=== PATIENT | female | born 1940 | race Caucasian/White ===

== ENCOUNTER 2019-01-22 12:34 | Inpatient (IN) | payer BC, OTHER ==
--- NOTE | 2019-01-22 13:09 | PDOC ---
History of Present Illness - General Stated Complaint: EDEMA Time Seen by Provider: 01/22/19 13:06 - History of Present Illness Initial Comments: 01/22/19 14:27 78y/o F hx of HTN, possible Parkinsons, HLD presents to the ED with complaint of right knee pain and leg swelling. She was in her wheelchair for 4 days unable to get up because of pain in her right knee. She had a fall from her wheelchair 2 weeks ago and fell on affected knee. She denies any head trauma at that time and reports being able to ambulate after the fall. Pain became unbearable 4 days ago confining her to her wheelchair. Pain is exacerbated by weight bearing on the knee and relieved with rest.She was able to reach her phone today and call her aide who alerted EMS services. Daughter and aide at bedside report she has a tendency to downplay her symptoms and injuries and are not certain that she is being entirely forthcoming about the circumstances surrounding her fall. she denies any fevers, chills, nausea, vomiting, diaphoresis, numbness or tingling. 01/22/19 14:38 Past History - Past Medical History Allergies/Adverse Reactions: Allergies Allergy/AdvReac Type Severity Reaction Status Date / Time Penicillins Allergy Verified 01/22/19 14:14 Home Medications: Ambulatory Orders Ferrous Sulfate 325 mg PO DAILY 01/22/19 Furosemide [Lasix] 20 mg PO DAILY 01/22/19 Gabapentin 300 mg PO TID 01/22/19 Levothyroxine [Synthroid -] 12.5 mcg PO DAILY@0700 01/22/19 Lovastatin 10 mg PO DAILY 01/22/19 Aspirin [Jaime Chewable Aspirin] 81 mg PO DAILY 01/23/19 Acetaminophen [Tylenol] 650 mg PO Q6H PRN #60 tablet 01/26/19 Lidocaine 5% Patch [Lidoderm -] 1 patch TP DAILY patch 01/26/19 Lidocaine Patch Removal [Lidoderm Patch Removal] 1 each MC DAILY@2200 each 09/09 Lisinopril [Prinivil] 5 mg PO DAILY #30 tablet 01/26/19 Review of Systems - Review of Systems Constitutional: No: Chills, Fever HEENTM: No: Eye Pain, Blurred Vision Respiratory: No: Cough, Shortness of Breath Cardiac (ROS): No: Chest Pain ABD/GI: No: Nausea, Vomiting : No: Burning, Dysuria Musculoskeletal: Yes: Back Pain Integumentary: No: Bruising, Change in Color Neurological: No: Headache, Dizziness *Physical Exam - Physical Exam Comments: 01/22/19 14:33 PE: GENERAL: Awake, alert, and fully oriented, in no acute distress HEAD: No signs of trauma, normocephalic, atraumatic EYES: PERRLA, EOMI, sclera anicteric, conjunctiva clear ENT: Auricles normal inspection, nares patent, oropharynx clear without exudates. Moist mucosa NECK: Normal ROM, supple, no lymphadenopathy, JVD, or masses. kyphosis of upper back LUNGS: No distress, speaks full sentences, decreased breath sounds, no rales or crackles HEART: tachycardic, normal S1 and S2, no murmurs, rubs or gallops, 1+ pedal pulses ABDOMEN: Soft, nontender, normoactive bowel sounds. No guarding, no rebound. No masses. Red erythematous rash in folds of lower abdomen and groin. EXTREMITIES : bilateral 3+ pitting edema on lower extremities. right knee tender to palpation. no bruising/erythema observed. NEUROLOGICAL: Cranial nerves II through XII grossly intact. Normal speech, no focal sensorimotor deficits SKIN: Warm, Dry, normal turgor, no rashes (with exception of abdomen, see abdominal exam) noted ED Treatment Course - LABORATORY CBC & Chemistry Diagram: 01/23/19 06:33 01/24/19 08:35 Medical Decision Making - Medical Decision Making 78y/o F hx of HTN, possible Parkinsons, HLD presents to the ED with complaint of right knee pain and leg swelling. Workup cbc,cmp, ekg, ua, urine culture, head ct w/o contrast, bnp, cardiac profile, right knee x-ray Pt has resisted previous recommendations for cardiology consultation will request a cardiology consult. 01/22/19 14:29 Pharmacy contacted for full list of medication. informed they will call back in 20minutes. 01/22/19 14:31 01/22/19 14:50 EKG: sinus tachycardia, junctional ST depression 01/22/19 17:[address] The risks and benefits were clearlry explaained to her. She refuses to do so because of her anxiety and because she does bot want to stay flat. She was offered ativan and pain medication to help with her pain and tolerating CT but she still refuses. Discharge - Discharge Information Problems reviewed: Yes Clinical Impression/Diagnosis: Knee pain Qualifiers: Chronicity: unspecified Laterality: right Qualified Code(s): M25.561 - Pain in right knee Condition: Improved Disposition: LONG TERM FACILITY - Follow up/Referral - Patient Discharge Instructions - Post Discharge Activity
[2019-01-22 14:36] LABS: BASO % 0.4 % (0-2.0); EOS % 0.2 % (0-4.5); HEMATOCRIT 39.9 % (32.4-45.2); HEMOGLOBIN 12.7 GM/dL (10.7-15.3); LYMPH % 8.8 % (8-40); MCH 27.2 pg (25.7-33.7); MCHC 31.8 g/dl (32.0-36.0); MEAN CELL VOLUME 85.8 fl (80-96); MEAN PLT VOLUME 8.1 fl (7.5-11.1); MONO % 5.7 % (3.8-10.2); NEUT % 84.9 % (42.8-82.8); PLATELET COUNT 206 K/MM3 (134-434); RBC 4.66 M/mm3 (3.60-5.2); RDW 16.3 % (11.6-15.6); WHITE BLOOD COUNT 11.1 K/mm3 (4.0-10.0)
--- NOTE | 2019-01-22 14:46 | PDOC ---
Attending Attestation - Resident Resident Name: Tana Tucker - ED Attending Attestation I have performed the following: I have examined & evaluated the patient, The case was reviewed & discussed with the resident, I agree w/resident's findings & plan, Exceptions are as noted - HPI HPI: 01/22/19 13:54 78y F hx of htn, hl, and other unclear medical history presents with complaint of R leg pain and inability to ambulate. Pt states she has been having increased leg swelling the past few weeeks, she also fell because her walker's wheel fell off. She fell a few days ago on her side and denies any head injury/ loc, numbness/tingling/weakness, chest pain, shortness of breath, abd pain, orthopnea, new back pain. Pt does endorse R knee pain that makes it difficult to ambulate in addition to her leg swelling. - Physicial Exam PE: 01/22/19 14:46 GENERAL: The patient is awake, alert, and fully oriented, Nontoxic - in no acute distress, obese HEAD: Normocephalic, atraumatic. EYES: extraocular movements intact, sclera anicteric, conjunctiva clear. ENT: Normal voice, dry mucous membranes. NECK: Normal range of motion, supple LUNGS: Breath sounds equal, clear to auscultation bilaterally. No wheezes, no rhonchi, no rales. HEART: Rtachycardic, regular ABDOMEN: Soft, nontender, EXTREMITIES: Normal range of motion, +4 pitting edema b/l NEUROLOGICAL: No facial assymetry, Normal speech, PSYCH: Normal mood, normal affect. SKIN: Warm, Dry, normal turgor, erythemaous rash on abd panus - Medical Decision Making 01/22/19 14:47 suspect lypmphedema vs chf, also noted for dehydration and xander 01/22/19 15:22 labs reviewed noted for mild BUN elevation will give fluids for hydration will give tramadol for pain Heart Score/ECG Review - ECG Impressions Comment:: 01/22/19 15:22 Twelve-lead EKG was performed and reviewed by me. There is normal sinus rhythm with a rate of 118 normal axis sinus tachycardia
[2019-01-22 15:06] LABS: BILIRUBIN,TOTAL 0.6 mg/dL (0.2-1); BLOOD UREA NITROGEN 39.2 mg/dL (7-18); CALCIUM 9.6 mg/dL (8.5-10.1); CREATININE 1.2 mg/dL (0.55-1.3); POTASSIUM 4.6 mmol/L (3.5-5.1); TOT PROT 7.5 g/dl (6.4-8.2)
[2019-01-22] MEDS ORDERED: SODIUM CHLORIDE 1,000 ML IV ONE (15:20)
[2019-01-22] MEDS ORDERED: traMADol HCL 50 MG TABLET PO ONE (15:21)
--- NOTE | 2019-01-22 15:34 | EKG ---
Test Reason : Blood Pressure : / mmHG Vent. Rate : 118 BPM Atrial Rate : 118 BPM P-R Int : 140 ms QRS Dur : 078 ms QT Int : 310 ms P-R-T Axes : 078 028 021 degrees QTc Int : 434 ms POOR DATA QUALITY, INTERPRETATION MAY BE ADVERSELY AFFECTED SINUS TACHYCARDIA JUNCTIONAL ST DEPRESSION, PROBABLY NORMAL BORDERLINE ECG NO PREVIOUS ECGS AVAILABLE Confirmed by Cristhian Nash MD ([id number]) on 01/22/2019 3:34:19 PM Referred By: Confirmed By:Cristhian Nash MD
[2019-01-22] MEDS ORDERED: diazePAM 2 MG TABLET PO ONE (15:54)
[2019-01-22] MEDS ORDERED: LORazepam 2 MG/ML SDV VIAL ONE (15:58)
[2019-01-22] MEDS ORDERED: traMADol HCL 50 MG TABLET ONE (17:59)
[2019-01-22 18:16] LABS: EPI CELLS 2.8 /HPF (0-5/HPF); HYALINE CASTS 4 /lpf (0-8); URINE APPEARANCE CLEAR; URINE BACTERIA 3587.9 /hpf (NEGATIVE); URINE BILIRUBIN NEGATIVE (NEGATIVE); URINE COLOR YELLOW; URINE GLUCOSE (UA) NEGATIVE (NEGATIVE); URINE KETONE TRACE (NEGATIVE); URINE LEUK ESTERASE NEGATIVE (NEGATIVE); URINE NITRITE POSITIVE (NEGATIVE); URINE PROTEIN NEGATIVE (NEGATIVE); URINE RBC 2 /hpf (0-4); URINE UROBILINOGEN 0.2 mg/dL (0.2-1.0); URINE WBC 1 /hpf (0-5)
--- NOTE | 2019-01-22 19:35 | PN ---
Teaching Attending Note Name of Resident: Christina Santacruz ATTENDING PHYSICIAN STATEMENT I saw and evaluated the patient. I reviewed the resident's note and discussed the case with the resident. I agree with the resident's findings and plan as documented. SUBJECTIVE: Patient is an 78 year old woman with PMH of HTN, ?Parkinson's disease, Hypothyroidism, Penicillin allergy and HLD presents to the ER with complaint of right knee pain and leg swelling. She was in her wheelchair for 4 days unable to get up because of pain in her right knee. She had a fall from her wheelchair 2 weeks ago and fell on affected knee. She denies any head trauma at that time and reports being able to ambulate after the fall. Pain became unbearable 4 days ago confining her to her wheelchair. Pain is exacerbated by weight bearing on the knee and relieved with rest. Daughter and aide at bedside report she has a tendency to downplay her symptoms and injuries and are not certain that she is being entirely forthcoming about the circumstances surrounding her fall. she denies any fevers, chills, nausea, vomiting, diaphoresis, numbness or tingling. Has FH of dementia and ?heart problem. OBJECTIVE: Vital Signs Period Temp Pulse Resp BP Sys/Murrell Pulse Ox Last 24 Hr 99.3 F 112 18 171/98 98 HEENT: No Jaundice, eye redness or discharge, PERRLA, EOMI. Normocephalic, atraumatic. External ears are normal and hearing is grossly intact. No nasal discharge. Neck: Supple, nontender. No palpable adenopathy or thyromegaly. No JVD Chest: Good effort. Clear to auscultation and percussion. Heart: Regular. No S3, rub or murmur Abdomen: Not distended, soft, nontender and no HSM. ?Fungal rash in lower abdominal folds. No rebound or guarding. Normal bowel sounds. Ext: Peripheral pulses intact. Tender and swollen right knee with limited ROM. Leg edema (R>L). Skin: Warm and dry. No petechiae, rash or ecchymosis. Neuro: Alert. Oriented x3. CN 2-12 grossly intact. Sensation grossly intact in all four extremities and DTR are symmetric. Gait cannot be tested for safety reasons. Psych: Appropriate mood and affect. Good insight. Home Medications Medication Instructions Recorded Ferrous Sulfate 325 mg PO DAILY 01/22/19 Furosemide [Lasix] 20 mg PO DAILY 01/22/19 Gabapentin 300 mg PO TID 01/22/19 Levothyroxine [Synthroid -] 12.5 mcg PO DAILY 01/22/19 Lovastatin 10 mg PO DAILY 01/22/19 Meloxicam 15 mg PO DAILY 01/22/19 Abnormal Lab Results 01/22/19 01/22/19 01/22/19 14:30 14:30 18:07 WBC 11.1 H MCHC 31.8 L RDW 16.3 H Absolute Neuts (auto) 9.4 H Neutrophils % 84.9 H BUN 39.2 H Alkaline Phosphatase 194 H Urine Ketones Trace H Urine Blood 1+ H Urine Nitrite Positive H ASSESSMENT AND PLAN: 1. Fall/Right knee pain - No abnormality noted on knee xray. Will get CT of right knee and head. Consult PT and Neurology to evaluate for movement disorder. Get doppler of legs, ECHO and treat UTI with Macrobid. EKG shows sinus tachycardia with no significant ST-T wave changes and initial troponin is 0.02. CXR shows increased interstitial markings, elevated right hemidiaphragm and bibasilar atelectesis. Will continue comprehensive care for all of patient s comorbid conditions. 2. Obesity Counseled on the risks associated with obesity. Will provide patient all the necessary assistance, counseling and positive reinforcement to facilitate weight loss. Consult tool and die manager. 3. Hypertension - Restart suitable outpatient antihypertensive drugs when clinically appropriate. Revise regimen to ensure [id number] excellent BP control and relocation counselor patient on the injurious effects of uncontrolled hypertension. Nonpharmacologic measures to control hypertension like weight loss , salt restriction and exercise discussed. Importance of adherence to treatment regimen and attainment of normotension emphasized. 4. DVT prophylaxis - Lovenox 40 mg SQ q 24 hours. 5. Advance directives - Full code
--- NOTE | 2019-01-22 21:41 | HP ---
CHIEF COMPLAINT: RLE pain PCP: Dr. Bianchi HISTORY OF PRESENT ILLNESS: 78 y.o. F PMH HTN, HLD, chronic lymphedema presenting with RLE pain. Patient says her wheelchair wheel broke off on October 25 causing her to fall out of her wheelchair; she did not hit her head or experience any traumas at this time. 1.5 weeks ago the wheel fell off her chair again and she subsequently fell. She was able to get back into her chair and denies any traumas during this fall; denied dizziness/ palpitations/ pain at time of falls-- never hit her head/ no LOC/ no incontinence. 4 days ago she started having sharp right knee pain, 7/10 , nonradiating with increased RLE edema. Since the second fall 1.5 weeks ago the patient has been wheelchair bound (was able to ambulate previously with a walker). Patient says she has not eaten for 24 hours due to pain and inability to prepare herself food. Pt denies CP/ SOB/ abdominal pain/ headaches/ fevers/ chills/ N/V/ appetite changes/ weight changes/ myalgias/ parasthesias/ polyuria / hematuria/ dysuria/ bowel movement changes. ER course was notable for: (1) 1L NS bolus (2)Tramadol 50mg PO (3) Recent Travel: denies PAST MEDICAL HISTORY: as per HPI PAST SURGICAL HISTORY: "breast lumps" removed as a child Social History: lives alone with no school psychometrist. Has a few friends that help out but not significantly. Daughter recently moved out of town Smoking: denies Alcohol: denies Drugs: denies Allergies Penicillins Allergy (Verified 01/22/19 14:14) HOME MEDICATIONS: Home Medications Medication Instructions Recorded Ferrous Sulfate 325 mg PO DAILY 01/22/19 Furosemide [Lasix] 20 mg PO DAILY 01/22/19 Gabapentin 300 mg PO TID 01/22/19 Levothyroxine [Synthroid -] 12.5 mcg PO DAILY 01/22/19 Lovastatin 10 mg PO DAILY 01/22/19 Meloxicam 15 mg PO DAILY 01/22/19 REVIEW OF SYSTEMS CONSTITUTIONAL: Absent: fever, chills, diaphoresis, generalized weakness, malaise, loss of appetite, weight change HEENT: Absent: rhinorrhea, nasal congestion, throat pain, throat swelling, difficulty swallowing, mouth swelling, ear pain, eye pain, visual changes CARDIOVASCULAR: Absent: chest pain, syncope, palpitations, irregular heart rate, lightheadedness , peripheral edema RESPIRATORY: Absent: cough, shortness of breath, dyspnea with exertion, orthopnea, wheezing, stridor, hemoptysis GASTROINTESTINAL: Absent: abdominal pain, abdominal distension, nausea, vomiting, diarrhea, constipation, melena, hematochezia GENITOURINARY: Absent: dysuria, frequency, urgency, hesitancy, hematuria, flank pain, genital pain MUSCULOSKELETAL: Absent: myalgia, arthralgia, joint swelling, back pain, neck pain SKIN: Absent: rash, itching, pallor HEMATOLOGIC/IMMUNOLOGIC: Absent: easy bleeding, easy bruising, lymphadenopathy, frequent infections ENDOCRINE: Absent: unexplained weight gain, unexplained weight loss, heat intolerance, cold intolerance NEUROLOGIC: Absent: headache, focal weakness or paresthesias, dizziness, unsteady gait, seizure, mental status changes, bladder or bowel incontinence PSYCHIATRIC: Absent: anxiety, depression, suicidal or homicidal ideation, hallucinations. PHYSICAL EXAMINATION Vital Signs - 24 hr 01/22/19 01/22/19 12:35 20:09 Temperature 99.3 F 98.1 F Pulse Rate 112 H Pulse Rate [ 96 H Apical] Respiratory 18 20 Rate Blood Pressure 171/98 H Blood Pressure 162/92 [Right Arm] O2 Sat by Pulse 98 98 Oximetry (%) GENERAL: Anxious. Awake, alert, and fully oriented. HEENT: NCAT. MMM. LUNGS: Breath sounds equal, clear to auscultation bilaterally. No wheezes, and no crackles. No accessory muscle use. HEART: Regular rate and rhythm, normal S1 and S2 without murmur, rub or gallop. ABDOMEN: Soft, nontender, not distended, normoactive bowel sounds, no guarding. Intertrigous rash present lower abdominal fold UPPER EXTREMITIES: 2+ pulses present. No edema LOWER EXTREMITIES: 2+ pitting edema present. Chronic lymphedema. 2+ pulses present b/l LE. NEUROLOGICAL: B/l LE diminished motor strength: LLE 2/5, RLE 0/5. Sensory intact b/l LE & UE. PSYCHIATRIC: Cooperative. Good eye contact. Appropriate mood and affect. Laboratory Results - last 24 hr 01/22/19 01/22/19 01/22/19 14:30 14:30 14:30 WBC 11.1 H RBC 4.66 Hgb 12.7 Hct 39.9 MCV 85.8 MCH 27.2 MCHC 31.8 L RDW 16.3 H Plt Count 206 MPV 8.1 Absolute Neuts (auto) 9.4 H Neutrophils % 84.9 H Lymphocytes % 8.8 Monocytes % 5.7 Eosinophils % 0.2 Basophils % 0.4 Nucleated RBC % 0 Sodium 143 Potassium 4.6 Chloride 107 Carbon Dioxide 26 Anion Gap 11 BUN 39.2 H Creatinine 1.2 Est GFR (CKD-EPI)AfAm 49.43 Est GFR (CKD-EPI)NonAf 42.65 Random Glucose 102 Calcium 9.6 Total Bilirubin 0.6 AST 32 ALT 42 Alkaline Phosphatase 194 H Creatine Kinase 40 Troponin I < 0.02 B-Natriuretic Peptide Total Protein 7.5 Albumin 4.0 Urine Color Urine Appearance Urine pH Ur Specific [place] Urine Protein Urine Glucose (UA) Urine Ketones Urine Blood Urine Nitrite Urine Bilirubin Urine Urobilinogen Ur Leukocyte Esterase Urine WBC (Auto) Urine RBC (Auto) Urine Casts (Auto) U Epithel Cells (Auto) Urine Bacteria (Auto) 01/22/19 01/22/19 14:30 18:07 WBC RBC Hgb Hct MCV MCH MCHC RDW Plt Count MPV Absolute Neuts (auto) Neutrophils % Lymphocytes % Monocytes % Eosinophils % Basophils % Nucleated RBC % Sodium Potassium Chloride Carbon Dioxide Anion Gap BUN Creatinine Est GFR (CKD-EPI)AfAm Est GFR (CKD-EPI)NonAf Random Glucose Calcium Total Bilirubin AST ALT Alkaline Phosphatase Creatine Kinase Troponin I B-Natriuretic Peptide 132.8 Total Protein Albumin Urine Color Yellow Urine Appearance Clear Urine pH 5.0 Ur Specific [place] 1.023 Urine Protein Negative Urine Glucose (UA) Negative Urine Ketones Trace H Urine Blood 1+ H Urine Nitrite Positive H Urine Bilirubin Negative Urine Urobilinogen 0.2 Ur Leukocyte Esterase Negative Urine WBC (Auto) 1 Urine RBC (Auto) 2 Urine Casts (Auto) 4 U Epithel Cells (Auto) 2.8 Urine Bacteria (Auto) 3587.9 ASSESSMENT/PLAN: 78 y.o. F PMH HTN, HLD, chronic lymphedema presentin for RLE pain #RLE pain 2/2 fall-- r/o ACS -S/p 50mg tramadol PO -Knee XR done no fractures -Ordered R knee CT and LE duplex u/s; pt refusing both studies -PT requested -Neuro (Dr. Tomas) consulted. -EKG: sinus tachy;; trop neg x1 -F.u echo -Tele monitoring #HTN -pt takes no home HTN meds -Started lisinopril 5mg daily #UTI -UA: +nitrites, 1+ blood, trace ketones -Macrobid 50mg PO q6h x 5d #HLD -C/w lovastatin (home med) #FEN -s/p 1LNS in ED; no standing fluids -trend lytes -Na controlled diet #DVT PPX -LVX 40mg SQ daily Visit type - Emergency Visit Emergency Visit: Yes ED Registration Date: 01/22/19 Care time: The patient presented to the Emergency Department on the above date and was hospitalized for further evaluation of their emergent condition. - New Patient This patient is new to me today: Yes Date on this admission: 01/23/19 - Critical Care Critical Care patient: No ATTENDING PHYSICIAN STATEMENT I saw and evaluated the patient. I reviewed the resident's note and discussed the case with the resident. I agree with the resident's findings and plan as documented. SUBJECTIVE: OBJECTIVE: ASSESSMENT AND PLAN:
[2019-01-23] MEDS ORDERED: ACETAMINOPHEN 325 MG TABLET (FP) PO ONE (00:58)
[2019-01-23] MEDS: GABAPENTIN 300 MG CAPSULE (FP) PO SCH ×3 (06:15→22:49)
[2019-01-23 06:53] LABS: HEMATOCRIT 35.5 % (32.4-45.2); HEMOGLOBIN 11.6 GM/dL (10.7-15.3); MCH 27.8 pg (25.7-33.7); MCHC 32.7 g/dl (32.0-36.0); MEAN CELL VOLUME 84.8 fl (80-96); MEAN PLT VOLUME 8.1 fl (7.5-11.1); PLATELET COUNT 186 K/MM3 (134-434); RBC 4.18 M/mm3 (3.60-5.2); RDW 16.3 % (11.6-15.6); WHITE BLOOD COUNT 7.2 K/mm3 (4.0-10.0)
[2019-01-23 07:18] LABS: ALBUMIN 3.3 g/dl (3.4-5.0); BILIRUBIN,TOTAL 0.7 mg/dL (0.2-1); BLOOD UREA NITROGEN 28.3 mg/dL (7-18); CALCIUM 8.9 mg/dL (8.5-10.1); CREATININE 0.9 mg/dL (0.55-1.3); MAGNESIUM 2.3 mg/dL (1.8-2.4); PHOSPHOROUS 3.4 mg/dL (2.5-4.9); POTASSIUM 4.3 mmol/L (3.5-5.1); TOT PROT 6.4 g/dl (6.4-8.2)
[2019-01-23] MEDS ORDERED: NITROFURANTOIN MACROCRYSTAL 50 MG CAPSULE (FP) PO SCH (08:00)
[2019-01-23] MEDS: LEVOTHYROXINE NA 25 MCG TABLET (FP) PO SCH (08:54)
[2019-01-23] MEDS ORDERED: PT OWN MED DRAWER 7, Y5N ONE (09:41)
[2019-01-23] MEDS: ENOXAPARIN NA (PORCINE) 40 MG/0.4 ML DISP.SYRIN SQ SCH (09:42)
[2019-01-23] MEDS: LISINOPRIL 5 MG TABLET (FP) PO SCH (09:42)
[2019-01-23] MEDS: ASPIRIN 81 MG CHEWABLE TABLETS PO SCH (09:42)
[2019-01-23] MEDS: FERROUS SO4 325 MG TABLET (FP) PO SCH (09:42)
[2019-01-23] MEDS ORDERED: FLU VACCINE QUAD 60 MCG/0.5 ML (MDV 19-20) IM ONE (10:00)
[2019-01-23] MEDS ORDERED: LEVOTHYROXINE NA 25 MCG TABLET (FP) PO SCH (10:00)
--- NOTE | 2019-01-23 11:29 | EKG ---
Test Reason : Blood Pressure : / mmHG Vent. Rate : 118 BPM Atrial Rate : 118 BPM P-R Int : 146 ms QRS Dur : 086 ms QT Int : 312 ms P-R-T Axes : 062 021 026 degrees QTc Int : 437 ms SINUS TACHYCARDIA OTHERWISE NORMAL ECG WHEN COMPARED WITH ECG OF 22-JAN-2019 13:11, NO SIGNIFICANT CHANGE WAS FOUND Confirmed by HIPOLITO FRIED MD ([id number]) on 01/23/2019 11:29:31 AM Referred By: Confirmed By:HIPOLITO FRIED MD
--- NOTE | 2019-01-23 14:08 | ECHO ---
Name: OWEN MCRAE Exam:Adult Echocardiogram Study Date: 01/23/2019 12:40 PM Age: 78 yrs Reason For Study: s/p fall Height: 66 in Weight: 200 lb BSA: 2.0 m2 MMode/2D Measurements & Calculations IVSd: 1.1 cm Ao root diam: 2.6 cm LVIDd: 3.1 cm LA dimension: 2.6 cm LVIDs: 2.0 cm LVPWd: 0.86 cm EDV(Teich): 36.9 ml LVOT diam: 2.0 cm ESV(Teich): 12.1 ml LAV (MOD-bp): 62.7 ml Doppler Measurements & Calculations MV E max raj: 86.8 cm/sec Ao V2 max: 210.4 cm/sec MV A max raj: 117.9 cm/sec Ao max P.7 mmHg MV E/A: 0.74 Ao V2 mean: 148.5 cm/sec MV dec time: 0.08 sec Ao mean P.2 mmHg Ao V2 VTI: 43.5 cm JUAN A(I,D): 1.6 cm2 AI P1/2t: 461.4 msec JUAN A(V,D): 1.7 cm2 AI max raj: 156.1 cm/sec LV V1 max P.2 mmHg AI max P.7 mmHg LV V1 mean P.7 mmHg AI dec slope: 99.1 cm/sec2 LV V1 max: 114.0 cm/sec LV V1 mean: 74.5 cm/sec LV V1 VTI: 22.0 cm SV(LVOT): 68.6 ml TR max raj: 317.6 cm/sec TR max P.4 mmHg PA V2 max: 107.2 cm/sec Med Peak E' Raj: 5.4 cm/sec PA max P.6 mmHg Med E/e': 16.0 Lat Peak E' Raj: 10.2 cm/sec Lat E/e': 8.5 Procedure The study was technically difficult with many images being suboptimal in quality. Left Ventricle The left ventricular size, thickness and function are normal. The left ventricular ejection fraction is normal. E/A reversal consistent with but not diagnostic of poor LV compliance. Regional wall motion abnormalities cannot be excluded due to limited visualization. Right Ventricle The right ventricle is normal in size and function. Atria Normal left and right atrial size and function. Mitral Valve There is mild mitral valve thickening. There is no mitral valve stenosis. There is trace mitral regur gitation. Tricuspid Valve The tricuspid valve is not well visualized, but is grossly normal. There is no tricuspid stenosis. Th ere is mild tricuspid regurgitation. Right ventricular systolic pressure is elevated at 40-50mmHg. Aortic Valve The aortic valve is not well visualized. No hemodynamically significant valvular aortic stenosis. Tra ce aortic regurgitation. Great Vessels The aortic root is normal size. Pericardium/Pleura There is no pericardial effusion. Interpretation Summary The left ventricular size, thickness and function are normal The left ventricular ejection fraction is normal. Regional wall motion abnormalities cannot be excluded due to limited visualization. There is trace mitral regurgitation. There is mild tricuspid regurgitation. Right ventricular systolic pressure is elevated at 40-50mmHg. E/A reversal consistent with but not diagnostic of poor LV compliance Trace aortic regurgitation. MD Tien Galaviz 01/23/2019 02:07 PM
--- NOTE | 2019-01-23 14:55 | CON.NEURO ---
Consult Consult Specialty:: Josh Referred by:: PCP Reason for Consultation:: Falls - History of Present Illness History of Present Illness: 78 years old right-handed female patient with multiple medical problem including Coronary artery disease Osteoarthritis Lymphedema Hypertension Presents to the hospital for neurological consultation and evaluation with a chief complaint difficulty walking patient was admitted to the medical floor for further treatment and management. According to the chart patient broke her wheelchair and sustained trauma with a fall October 25. Patient never been to a neurologist in the past. - History Source History Provided By: Patient, Significant Other, Medical Record - Past Medical History ...: No - Alcohol/Substance Use Hx Alcohol Use: No - Smoking History Smoking history: Never smoked Have you smoked in the past 12 months: No Home Medications - Allergies Allergies/Adverse Reactions: Allergies Allergy/AdvReac Type Severity Reaction Status Date / Time Penicillins Allergy Verified 01/22/19 14:14 - Home Medications Home Medications: Ambulatory Orders Ferrous Sulfate 325 mg PO DAILY 01/22/19 Furosemide [Lasix] 20 mg PO DAILY 01/22/19 Gabapentin 300 mg PO TID 01/22/19 Levothyroxine [Synthroid -] 12.5 mcg PO DAILY@0700 01/22/19 Lovastatin 10 mg PO DAILY 01/22/19 Meloxicam 15 mg PO DAILY 01/22/19 Aspirin [Jaime Chewable] 81 mg PO DAILY 01/23/19 Family Medical History Family History: Unable to Obtain Review of Systems - Review of Systems Constitutional: reports: No Symptoms Eyes: reports: No Symptoms Physical Exam-Neuro Vital Signs: Vital Signs Temperature 98.5 F 01/23/19 10:00 Pulse Rate 110 H 01/23/19 10:00 Respiratory Rate 20 01/23/19 10:00 Blood Pressure 145/74 01/23/19 10:00 O2 Sat by Pulse Oximetry (%) 95 01/23/19 09:00 Constitutional: Yes: Well Nourished Neck: Yes: WNL Cardiovascular: Yes: WNL Labs: CBC, BMP 01/23/19 06:33 01/23/19 06:33 - Neuro Exam Level Of Consciousness: Yes: Oriented to Person DTR's: 1+ Left Bicep, 1+ Right Bicep, 1+ Left Tricep, 1+ Right Tricep Response to light touch: Normal Response to pain prick: Normal Response to temperature: Abnormal Response to vibration: Abnormal Motor Strength: 3/5: Left Arm, Right Arm, Left Leg, Right Leg Gait: Deferred Problem List - Problems (1) Frequent falls Assessment/Plan: NO EVIDENCE OF PARKINSON 1. Fall precautions. 2. CAT scan of the head with no contrast. 3. CAT scan of the lumbosacral spine with no contrast. Physical therapy. Increase by mouth fluid intake. Lidocaine patches on the lower back. DVT prophylaxis. Code(s): R29.6 - REPEATED FALLS
[2019-01-23] MEDS: FUROSEMIDE 20 MG TABLET (FP) PO SCH (15:07)
[2019-01-23] MEDS ORDERED: LIDOCAINE 5% TOPICAL PATCH TP SCH (15:45)
--- NOTE | 2019-01-23 15:52 | PN ---
Addendum entered and electronically signed by Cande Harrell, RESIDENT 16:37: Plan: Chronic lymphedema SCDs to assist while inpatient. pt uses pump at home Original Note: Physical Exam: SUBJECTIVE: Patient seen and examined. Pt continues to endorse pain in the right leg as well as behind the right knee. OBJECTIVE: Vital Signs Period Temp Pulse Resp BP Sys/Murrell Pulse Ox Last 24 Hr 98.1 F-99.4 F 96-139 20-20 141-162/74-107 95-98 GENERAL: The patient is awake, alert, and fully oriented, in no acute distress. HEAD: Normal with no signs of trauma. EYES: PERRL, extraocular movements intact, sclera anicteric, conjunctiva clear. No ptosis. ENT: oropharynx clear without exudates, moist mucous membranes. LUNGS: Breath sounds equal, clear to auscultation bilaterally, no wheezes, no crackles, no accessory muscle use. HEART: Regular rate and rhythm, S1, S2 without murmur, rub or gallop. ABDOMEN: Soft, nontender, nondistended, normoactive bowel sounds, no guarding, no rebound, no hepatosplenomegaly, no masses. EXTREMITIES: 2+ pulses, warm, well-perfused, pitting edema. SKIN: Warm, dry, normal turgor, chronic lymphedema skin changes Laboratory Results - last 24 hr 01/22/19 01/23/19 01/23/19 18:07 04:30 06:33 WBC 7.2 RBC 4.18 Hgb 11.6 Hct 35.5 MCV 84.8 MCH 27.8 MCHC 32.7 RDW 16.3 H Plt Count 186 MPV 8.1 Sodium Potassium Chloride Carbon Dioxide Anion Gap BUN Creatinine Est GFR (CKD-EPI)AfAm Est GFR (CKD-EPI)NonAf Random Glucose Calcium Phosphorus Magnesium Total Bilirubin AST ALT Alkaline Phosphatase Troponin I < 0.02 Total Protein Albumin Urine Color Yellow Urine Appearance Clear Urine pH 5.0 Ur Specific Cumming 1.023 Urine Protein Negative Urine Glucose (UA) Negative Urine Ketones Trace H Urine Blood 1+ H Urine Nitrite Positive H Urine Bilirubin Negative Urine Urobilinogen 0.2 Ur Leukocyte Esterase Negative Urine WBC (Auto) 1 Urine RBC (Auto) 2 Urine Casts (Auto) 4 U Epithel Cells (Auto) 2.8 Urine Bacteria (Auto) 3587.9 01/23/19 06:33 WBC RBC Hgb Hct MCV MCH MCHC RDW Plt Count MPV Sodium 142 Potassium 4.3 Chloride 108 H Carbon Dioxide 27 Anion Gap 6 L BUN 28.3 H Creatinine 0.9 Est GFR (CKD-EPI)AfAm 69.99 Est GFR (CKD-EPI)NonAf 60.39 Random Glucose 97 Calcium 8.9 Phosphorus 3.4 Magnesium 2.3 Total Bilirubin 0.7 AST 28 ALT 34 Alkaline Phosphatase 165 H Troponin I Total Protein 6.4 Albumin 3.3 L Urine Color Urine Appearance Urine pH Ur Specific Cumming Urine Protein Urine Glucose (UA) Urine Ketones Urine Blood Urine Nitrite Urine Bilirubin Urine Urobilinogen Ur Leukocyte Esterase Urine WBC (Auto) Urine RBC (Auto) Urine Casts (Auto) U Epithel Cells (Auto) Urine Bacteria (Auto) Active Medications Generic Name Dose Route Start Last Admin Trade Name Freq PRN Reason Stop Dose Admin Aspirin 81 mg 01/23/19 10:00 01/23/19 09:42 Asa - PO 81 mg DAILY [facility] Administration Atorvastatin Calcium 10 mg 01/23/19 22:00 Lipitor - PO HS [facility] Enoxaparin Sodium 40 mg 01/23/19 10:00 01/23/19 09:42 Lovenox - SQ 40 mg DAILY [facility] Administration Ferrous Sulfate 325 mg 01/23/19 10:00 01/23/19 09:42 Feosol - PO 325 mg DAILY [facility] Administration Furosemide 20 mg 01/23/19 14:45 01/23/19 15:07 Lasix - PO 20 mg DAILY [facility] Administration Gabapentin 300 mg 01/23/19 06:00 01/23/19 15:07 Neurontin - PO 300 mg TID [facility] Administration Levothyroxine Sodium 12.5 mcg 01/23/19 07:45 01/23/19 08:54 Synthroid - PO 12.5 mcg 0700 [facility] Administration Lidocaine 1 patch 01/23/19 15:45 Lidoderm Patch - TP DAILY [facility] Lisinopril 5 mg 01/23/19 10:00 01/23/19 09:42 Prinivil PO 5 mg DAILY [facility] Administration Miscellaneous 1 each 01/23/19 22:00 Lidoderm Patch Removal MC DAILY@2200 [facility] Nystatin 1 applic 01/23/19 14:30 Mycostatin Cream - TP TID [facility] ASSESSMENT/PLAN: 78 y.o. F PMH HTN, HLD, chronic lymphedema presentin for RLE pain RLE pain 2/2 fall-- r/o ACS S/p 50mg tramadol PO Knee XR done no fractures Ordered R knee CT; pt refusing both studies and LE duplex u/s showed no DVT but gongora's cyst PT requested Neuro (Dr. Tomas) consulted and recommend head CT /Lumbar CT. Lidocaine patches in lower back. However, pt is claustrophobic. Echo unremarkable. Trops neg x2 HTN Started lisinopril 5mg daily UTI UA: +nitrites, 1+ blood, trace ketones. WBC 1 D/C Macrobid as pt is asymptomatic HLD cont statin Fungal rash in groin region Nystatin FEN s/p 1LNS in ED; no standing fluids trend lytes Na controlled diet DVT PPX LVX 40mg SQ daily Visit type - Emergency Visit Emergency Visit: Yes ED Registration Date: 01/22/19 Care time: The patient presented to the Emergency Department on the above date and was hospitalized for further evaluation of their emergent condition. - New Patient This patient is new to me today: No - Critical Care Critical Care patient: No - Discharge Referral Referred to [facility] Med P.C.: No ATTENDING PHYSICIAN STATEMENT I saw and evaluated the patient. I reviewed the resident's note and discussed the case with the resident. I agree with the resident's findings and plan as documented. SUBJECTIVE: OBJECTIVE: ASSESSMENT AND PLAN:
[2019-01-23] MEDS: LIDOCAINE 5% TOPICAL PATCH TP SCH (17:41)
[2019-01-23] MEDS: NYSTATIN 100,000 UNIT/GM TOPICAL CREAM 15 GM TUBE TP SCH ×2 (17:41→22:49)
--- NOTE | 2019-01-23 18:04 | PN ---
Teaching Attending Note Name of Resident: Barry Maynard ATTENDING PHYSICIAN STATEMENT I saw and evaluated the patient. I reviewed the resident's note and discussed the case with the resident. I agree with the resident's findings and plan as documented. SUBJECTIVE: No fever or chills. has pain in R knee. not able to walk or move in bed due to that. OBJECTIVE: NAD. MMM, CV : RRR Lungs: CTAB Abd : soft, NT, ND , NL BS Ext : edema and thick skin on both legs. No effusion in knees, R knee looks larger than L. warm legs in lower part. Dp 2+ b/l ASSESSMENT AND PLAN: 78 y/o lady with h/o HTN, Hypothyroidism, Penicillin allergy and HLD, adn recent fall 2 weeks ago who presented with R knee pain 1- R knee pain: US with Gonzales's cyst , no DVT. No Fx on xray . - patient refuses CT scan even though we can be missing a Fx. she declines benzos for clustrophobia or even partial placement in CT machine - ortho consult pending - lidocaine patch - neurontin and tylenol - cont lasix for lymphedema 2- Neuro consult for possible movement disorder, appreciated. patient can't tolerate CT 3- HTn: cont lisinopril 4- DVT PX : ania has a female external cath, will dc tomorrow as she refused removal today
[2019-01-23] MEDS ORDERED: NYSTATIN 100,000 UNIT/GM TOPICAL CREAM 15 GM TUBE TP SCH (22:00)
[2019-01-23] MEDS: LIDOCAINE PATCH REMOVAL MC SCH (22:49)
[2019-01-23] MEDS: ATORVASTATIN CA 10 MG TABLET (FP) PO SCH (22:49)
[2019-01-24] MEDS ORDERED: ACETAMINOPHEN 325 MG TABLET (FP) PO ONE (00:03)
[2019-01-24] MEDS: LEVOTHYROXINE NA 25 MCG TABLET (FP) PO SCH (06:20)
[2019-01-24] MEDS: GABAPENTIN 300 MG CAPSULE (FP) PO SCH ×3 (06:20→21:01)
[2019-01-24] MEDS: NYSTATIN 100,000 UNIT/GM TOPICAL CREAM 15 GM TUBE TP SCH ×3 (06:21→21:02)
[2019-01-24 09:33] LABS: BLOOD UREA NITROGEN 21.6 mg/dL (7-18); CALCIUM 8.5 mg/dL (8.5-10.1); CREATININE 0.9 mg/dL (0.55-1.3); POTASSIUM 3.8 mmol/L (3.5-5.1)
[2019-01-24] MEDS ORDERED: PT OWN MED DRAWER 7, Y5N ONE ×3 (09:43→16:00)
[2019-01-24] MEDS: LISINOPRIL 5 MG TABLET (FP) PO SCH (09:47)
[2019-01-24] MEDS: LIDOCAINE 5% TOPICAL PATCH TP SCH (09:47)
[2019-01-24] MEDS: ASPIRIN 81 MG CHEWABLE TABLETS PO SCH (09:47)
[2019-01-24] MEDS: FUROSEMIDE 20 MG TABLET (FP) PO SCH (09:47)
[2019-01-24] MEDS: FERROUS SO4 325 MG TABLET (FP) PO SCH (09:47)
[2019-01-24] MEDS: ENOXAPARIN NA (PORCINE) 40 MG/0.4 ML DISP.SYRIN SQ SCH (09:48)
--- NOTE | 2019-01-24 11:35 | PN ---
Physical Exam: SUBJECTIVE: Patient seen and examined. BHASKAR spoke with Mikael and she is looking for rehab placement for her mother. Tyesha Russo [facility] preferred. BHASKAR sent out request. Otherwise no complaints Pain in better. OBJECTIVE: Vital Signs Period Temp Pulse Resp BP Sys/Murrell Pulse Ox Last 24 Hr 98.3 F-99.4 F 92-133 20-20 143-152/80-107 94 GENERAL: The patient is awake, alert, and fully oriented, in no acute distress. HEAD: Normal with no signs of trauma. EYES: PERRL, extraocular movements intact, sclera anicteric, conjunctiva clear. No ptosis. ENT: oropharynx clear without exudates, moist mucous membranes. LUNGS: Breath sounds equal, clear to auscultation bilaterally, no wheezes, no crackles, no accessory muscle use. HEART: Regular rate and rhythm, S1, S2 without murmur, rub or gallop. ABDOMEN: Soft, nontender, nondistended, normoactive bowel sounds, no guarding, no rebound, no hepatosplenomegaly, no masses. EXTREMITIES: 2+ pulses, warm, well-perfused, pitting edema. SKIN: Warm, dry, normal turgor, chronic lymphedema skin changes Laboratory Results - last 24 hr 01/24/19 08:35 Sodium 142 Potassium 3.8 Chloride 106 Carbon Dioxide 30 Anion Gap 7 L BUN 21.6 H Creatinine 0.9 Est GFR (CKD-EPI)AfAm 69.99 Est GFR (CKD-EPI)NonAf 60.39 Random Glucose 99 Calcium 8.5 Active Medications Generic Name Dose Route Start Last Admin Trade Name Dorianq PRN Reason Stop Dose Admin Aspirin 81 mg 01/23/19 10:00 01/24/19 09:47 Asa - PO 81 mg DAILY [facility] Administration Atorvastatin Calcium 10 mg 01/23/19 22:00 01/23/19 22:49 Lipitor - PO 10 mg HS [facility] Administration Enoxaparin Sodium 40 mg 01/23/19 10:00 01/24/19 09:48 Lovenox - SQ 40 mg DAILY [facility] Administration Ferrous Sulfate 325 mg 01/23/19 10:00 01/24/19 09:47 Feosol - PO 325 mg DAILY [facility] Administration Furosemide 20 mg 01/23/19 14:45 01/24/19 09:47 Lasix - PO 20 mg DAILY [facility] Administration Gabapentin 300 mg 01/23/19 06:00 01/24/19 06:20 Neurontin - PO 300 mg TID [facility] Administration Levothyroxine Sodium 12.5 mcg 01/23/19 07:45 01/24/19 06:20 Synthroid - PO 12.5 mcg 0700 [facility] Administration Lidocaine 1 patch 01/23/19 15:47 01/24/19 09:47 Lidoderm Patch - TP 1 patch DAILY [facility] Administration Lisinopril 5 mg 01/23/19 10:00 01/24/19 09:47 Prinivil PO 5 mg DAILY [facility] Administration Miscellaneous 1 each 01/23/19 22:00 01/23/19 22:49 Lidoderm Patch Removal MC Not Given DAILY@2200 [facility] Nystatin 1 applic 01/23/19 14:30 01/24/19 06:21 Mycostatin Cream - TP 1 applic TID [facility] Administration ASSESSMENT/PLAN: 78 y.o. F PMH HTN, HLD, chronic lymphedema presentin for RLE pain RLE pain 2/2 fall Pt feels so much better today. pain is well managed with lidocaine patches Knee XR done no fractures Ordered R knee CT ; pt still refusing studies so unable to r/o fracture Neuro (Dr. Tomas) also recommended head CT /Lumbar CT but pt refuses any sort of imaging due to clautrophobia LE duplex u/s showed gongora's cyst. Pending Ortho recommendations. PT recommended rehab to increase strength and endurance Lidocaine patches in lower back/knee HTN Started lisinopril 5mg daily UTI UA: +nitrites, 1+ blood, trace ketones. WBC 1 D/C Macrobid as pt is asymptomatic HLD cont lipitor 10 Fungal rash in groin region Nystatin FEN s/p 1LNS in ED; no standing fluids trend lytes Na controlled diet DVT PPX LVX 40mg SQ daily Visit type - Emergency Visit Emergency Visit: Yes ED Registration Date: 01/22/19 Care time: The patient presented to the Emergency Department on the above date and was hospitalized for further evaluation of their emergent condition. - New Patient This patient is new to me today: No - Critical Care Critical Care patient: No - Discharge Referral Referred to [facility] Med P.C.: No ATTENDING PHYSICIAN STATEMENT I saw and evaluated the patient. I reviewed the resident's note and discussed the case with the resident. I agree with the resident's findings and plan as documented. SUBJECTIVE: OBJECTIVE: ASSESSMENT AND PLAN:
--- NOTE | 2019-01-24 12:18 | PN ---
Teaching Attending Note Name of Resident: Cande Harrell ATTENDING PHYSICIAN STATEMENT I saw and evaluated the patient. I reviewed the resident's note and discussed the case with the resident. I agree with the resident's findings and plan as documented. SUBJECTIVE: No fever or chills. pain in R knee improved . No LEVIN , no change in vision . no SOB or CP . was able to walk with PT ( few steps ). OBJECTIVE: NAD. MMM CV: RRR Lungs: CTAB Ext : non pitting edema and thick skin on both legs. No effusion in knees, R knee looks smaller in size today. no erythema Dp 2+ b/l . able to partially bend R knee. ASSESSMENT AND PLAN: 78 y/o lady with h/o HTN, Hypothyroidism, Penicillin allergy and HLD, adn recent fall 2 weeks ago who presented with R knee pain 1- R knee pain: US with Gonzales's cyst , no DVT. No Fx on xray. - Cont to refuse CT - Ortho consult pending - Cont lidocaine patch - Neurontin and tylenol - Cont lasix for lymphedema 2- Neuro consult for possible movement disorder, appreciated. patient can't tolerate CT 3- HTN: cont lisinopril 4- Asymptomatic bacteruria: no treatment dc female external catheter DVT PX: lovenox Rehab placement
--- NOTE | 2019-01-24 14:24 | CON.ORTH ---
Consult Consult Specialty:: Orthopedics Reason for Consultation:: Right knee pain - History of Present Illness Chief Complaint: Right knee pain History of Present Illness: This is an 78 yo F with PMHx of hypertension, hyperlipidemia, and chronic lymphedema who presented to ED for right leg pain s/p fall from wheelchair after wheel fell off 1.5 weeks ago. Recently having increased knee pain to medial and lateral aspects without radiation with associated leg swelling. Today , patient notes the swelling and pain have significantly improved since its onset. Denies any previous injury to this knee. She is wheelchair bound at home. Denies any numbness, tingling to toes. Patient's glass cleaning machine tender is with her at bedside during today's evaluation. - History Source History Provided By: Patient, Caregiver - Past Medical History ...: No - Alcohol/Substance Use Hx Alcohol Use: No - Smoking History Smoking history: Never smoked Have you smoked in the past 12 months: No Home Medications - Allergies Allergies/Adverse Reactions: Allergies Allergy/AdvReac Type Severity Reaction Status Date / Time Penicillins Allergy Verified 01/22/19 14:14 - Home Medications Home Medications: Ambulatory Orders Ferrous Sulfate 325 mg PO DAILY 01/22/19 Furosemide [Lasix] 20 mg PO DAILY 01/22/19 Gabapentin 300 mg PO TID 01/22/19 Levothyroxine [Synthroid -] 12.5 mcg PO DAILY@0700 01/22/19 Lovastatin 10 mg PO DAILY 01/22/19 Meloxicam 15 mg PO DAILY 01/22/19 Aspirin [Jaime Chewable] 81 mg PO DAILY 01/23/19 Review of Systems Findings/Remarks: Right knee pain Physical Exam for Ortho Vital Signs: Vital Signs Temperature 98.6 F 01/24/19 08:10 Pulse Rate 92 H 01/24/19 08:10 Respiratory Rate 20 01/24/19 08:10 Blood Pressure 145/81 01/24/19 08:10 O2 Sat by Pulse Oximetry (%) 94 L 01/23/19 21:00 Constitutional: Yes: Well Nourished (This is an obese female.) Labs: CBC, BMP 01/23/19 06:33 01/24/19 08:35 - Lower Extremity Knee: Yes: Right (No skin lesions. Mild posterior swelling. No effusions. Decreased ROM with moderate crepitus. Tenderness to medial more than lateral joint lines. Calves soft, nontender. NVID.) Imaging - Results X-ray: Report Reviewed, Image Reviewed (Right knee images show moderate degenerative changes without acute pathology.) Ultrasound: Report Reviewed (No evidence of DVT. Bakers cyst present.) Problem List - Problems (1) Osteoarthritis of right knee Code(s): M17.11 - UNILATERAL PRIMARY OSTEOARTHRITIS, RIGHT KNEE Assessment/Plan 78 yo F with PMHx of hypertension, hyperlipidemia, and chronic lymphedema who presented to ED for right leg pain s/p fall from wheelchair after wheel fell off 1.5 weeks ago. -PE of right knee shows decreased ROM with crepitus and mild posterior swelling , medial more than lateral joint line tenderness -XR of R knee shows moderate degenerative changes. No evidence of acute pathology -US of RLE negative for DVT. Shows bakers cyst -These findings are most consistent with chronic osteoarthritis of right knee with bakers cyst -PT -WBAT with assistive device -Pain control -DVT prophylaxis -F/u outpatient
[2019-01-24] MEDS: LIDOCAINE PATCH REMOVAL MC SCH (21:01)
[2019-01-24] MEDS: ATORVASTATIN CA 10 MG TABLET (FP) PO SCH (21:01)
[2019-01-25] MEDS: LEVOTHYROXINE NA 25 MCG TABLET (FP) PO SCH (06:02)
[2019-01-25] MEDS: GABAPENTIN 300 MG CAPSULE (FP) PO SCH ×3 (06:02→21:13)
[2019-01-25] MEDS: NYSTATIN 100,000 UNIT/GM TOPICAL CREAM 15 GM TUBE TP SCH ×3 (06:03→21:14)
[2019-01-25] MEDS ORDERED: PT OWN MED DRAWER 7, Y5N ONE (09:18)
[2019-01-25] MEDS: FUROSEMIDE 20 MG TABLET (FP) PO SCH (09:21)
[2019-01-25] MEDS: LISINOPRIL 5 MG TABLET (FP) PO SCH (09:21)
[2019-01-25] MEDS: ASPIRIN 81 MG CHEWABLE TABLETS PO SCH (09:21)
[2019-01-25] MEDS: FERROUS SO4 325 MG TABLET (FP) PO SCH (09:21)
[2019-01-25] MEDS: LIDOCAINE 5% TOPICAL PATCH TP SCH (09:21)
[2019-01-25] MEDS: ENOXAPARIN NA (PORCINE) 40 MG/0.4 ML DISP.SYRIN SQ SCH (09:21)
--- NOTE | 2019-01-25 14:27 | PN ---
Progress Note, Physician History of Present Illness: events noted Chart reviewed Alert awake oriented follows command Still in mild pain on the right leg Seen by orthopedic Medication helping Unfortunately CAT scan was not done - Current Medication List Current Medications: Active Medications Aspirin (Asa -) 81 mg PO DAILY [facility] Last Admin: 01/25/19 09:21 Dose: 81 mg Atorvastatin Calcium (Lipitor -) 10 mg PO HS [facility] Last Admin: 01/24/19 21:01 Dose: 10 mg Enoxaparin Sodium (Lovenox -) 40 mg SQ DAILY [facility] Last Admin: 01/25/19 09:21 Dose: 40 mg Ferrous Sulfate (Feosol -) 325 mg PO DAILY [facility] Last Admin: 01/25/19 09:21 Dose: 325 mg Furosemide (Lasix -) 20 mg PO DAILY [facility] Last Admin: 01/25/19 09:21 Dose: 20 mg Gabapentin (Neurontin -) 300 mg PO TID [facility] [place] Last Admin: 01/25/19 06:02 Dose: 300 mg Levothyroxine Sodium (Synthroid -) 12.5 mcg PO 0700 [facility] [place] Last Admin: 01/25/19 06:02 Dose: 12.5 mcg Lidocaine (Lidoderm Patch -) 1 patch TP DAILY [facility] [place] Last Admin: 01/25/19 09:21 Dose: 1 patch Lisinopril (Prinivil) 5 mg PO DAILY [facility] [place] Last Admin: 01/25/19 09:21 Dose: 5 mg Miscellaneous (Lidoderm Patch Removal) 1 each MC DAILY@2200 [facility] [place] Last Admin: 01/24/19 21:01 Dose: 1 each Nystatin (Mycostatin Cream -) 1 applic TP TID [facility] [place] Last Admin: 01/25/19 06:03 Dose: 1 applic - Objective Vital Signs: Vital Signs Temperature 98.0 F 01/25/19 09:00 Pulse Rate 85 01/25/19 09:00 Respiratory Rate 20 01/25/19 09:00 Blood Pressure 159/84 01/25/19 09:00 O2 Sat by Pulse Oximetry (%) 95 01/25/19 09:00 Constitutional: Yes: Well Nourished Eyes: Yes: WNL HENT: Yes: WNL Neurological: Yes: Alert, Oriented, Babinski negative ...Motor Strength: WNL Labs: CBC, BMP 01/23/19 06:33 01/24/19 08:35 - ....Imaging Ultrasound: Report Reviewed Problem List - Problems (1) Frequent falls Assessment/Plan: frequent falls multifactorial gait dysfunction Spinal stenosis Sensory ataxia 1. Fall precautions. 2. Continue Neurontin. 3. Physical therapy. 4. DVT prophylaxis Code(s): R29.6 - REPEATED FALLS
--- NOTE | 2019-01-25 14:28 | PN ---
Physical Exam: SUBJECTIVE: Patient seen and examined. No new complaints. Pt. endorses improving knee pain. Pt. denies any fever or chills. Pt. denies any worsening numbness/tingling or weakness in lower extremities OBJECTIVE: Vital Signs Period Temp Pulse Resp BP Sys/Murrell Pulse Ox Last 24 Hr 98.0 F-99.1 F 83-95 20-20 130-164/72-88 95 GENERAL: The patient is awake, alert, and fully oriented, obese in no acute distress. HEAD: Normal with no signs of trauma. EYES: Sclera anicteric, conjunctiva clear. No ptosis. ENT: Ears normal, nares patent, oropharynx clear without exudates, moist mucous membranes. LUNGS: Breath sounds equal, clear to auscultation bilaterally, no wheezes, no crackles, no accessory muscle use. HEART: Regular rate and rhythm, S1, S2 without murmur ABDOMEN: Soft, nontender, nondistended, normoactive bowel sounds EXTREMITIES: 2+ dorsal pedal pulses, warm, well-perfused, no edema. Limited ROM L>R NEUROLOGICAL: Cranial nerves II through XII grossly intact. Normal speech, gait not observed. PSYCH: Normal mood, normal affect. SKIN: Warm, dry, normal turgor Active Medications Home Medications Medication Instructions Recorded Ferrous Sulfate 325 mg PO DAILY 01/22/19 Furosemide [Lasix] 20 mg PO DAILY 01/22/19 Gabapentin 300 mg PO TID 01/22/19 Levothyroxine [Synthroid -] 12.5 mcg PO DAILY@0700 01/22/19 Lovastatin 10 mg PO DAILY 01/22/19 Aspirin [Jaime Chewable Aspirin] 81 mg PO DAILY 01/23/19 Acetaminophen [Tylenol] 650 mg PO Q6H PRN #60 tablet 01/26/19 Lidocaine 5% Patch [Lidoderm -] 1 patch TP DAILY patch 01/26/19 Lidocaine Patch Removal [Lidoderm 1 each MC DAILY@2200 each 01/26/19 Patch Removal] Lisinopril [Prinivil] 5 mg PO DAILY #30 tablet 01/26/19 ASSESSMENT/PLAN: 78 y.o. F w/ PMHx. of HTN, HLD, chronic lymphedema presenting for RLE pain after an unwitnessed fall. #RLE pain 2/2 fall Pt feels so much better today. pain is well managed with lidocaine patches Knee XR done no fractures Ordered R knee CT ; pt still refusing studies so unable to r/o fracture Neuro (Dr. Tomas) also recommended head CT /Lumbar CT but pt refuses any sort of imaging due to claustrophobia LE duplex u/s showed gongora's cyst. Ortho recommendations appreciated. PT recommended rehab to increase strength and endurance Lidocaine patches in lower back/knee #HTN c/w lisinopril 5mg daily #UTI-Asymptomatic UA: +nitrites, 1+ blood, trace ketones. WBC 1 D/C Macrobid as pt is asymptomatic #HLD c/w lipitor 10 #Fungal rash in groin region c/w Nystatin #FEN s/p 1LNS in ED; no standing fluids trend lytes Na controlled diet #DVT PPX Lovenox 40mg SQ daily Visit type - Emergency Visit Emergency Visit: Yes ED Registration Date: 01/22/19 Care time: The patient presented to the Emergency Department on the above date and was hospitalized for further evaluation of their emergent condition. - New Patient This patient is new to me today: No - Critical Care Critical Care patient: No - Discharge Referral Referred to [facility] Med P.C.: No ATTENDING PHYSICIAN STATEMENT I saw and evaluated the patient. I reviewed the resident's note and discussed the case with the resident. I agree with the resident's findings and plan as documented. SUBJECTIVE: OBJECTIVE: ASSESSMENT AND PLAN:
[2019-01-25 14:49] VITALS: BMI 41.8
--- NOTE | 2019-01-25 16:00 | PN ---
Teaching Attending Note Name of Resident: Barry Maynard ATTENDING PHYSICIAN STATEMENT I saw and evaluated the patient. I reviewed the resident's note and discussed the case with the resident. I agree with the resident's findings and plan as documented. SUBJECTIVE: No fever or chills. pain in R leg has improved OBJECTIVE: NAD. MMM CV: RRR Lungs: CTAB Ext : non pitting edema and thick skin on both legs. no erythema Dp 2+ b/l . able to partially bend R knee. ASSESSMENT AND PLAN: 78 y/o lady with h/o HTN, Hypothyroidism, Penicillin allergy and HLD, adn recent fall 2 weeks ago who presented with R knee pain 1- R knee pain: US with Gonzales's cyst , no DVT. No Fx on xray. - Ortho consult appreciated . out pt f/u - Cont lidocaine patch - Neurontin and tylenol. - Cont lasix for lymphedema 2- neuro f/u as out pt 3- HTN: cont lisinopril 4- Asymptomatic bacteruria: no treatment DVT PX: lovenox Rehab placement pending
[2019-01-25] MEDS: ATORVASTATIN CA 10 MG TABLET (FP) PO SCH (21:13)
[2019-01-25] MEDS: LIDOCAINE PATCH REMOVAL MC SCH (21:14)
[2019-01-26] MEDS: NYSTATIN 100,000 UNIT/GM TOPICAL CREAM 15 GM TUBE TP SCH (06:32)
[2019-01-26] MEDS: GABAPENTIN 300 MG CAPSULE (FP) PO SCH (06:33)
[2019-01-26] MEDS: LEVOTHYROXINE NA 25 MCG TABLET (FP) PO SCH (06:33)
[2019-01-26] MEDS: LISINOPRIL 5 MG TABLET (FP) PO SCH (09:23)
--- NOTE | 2019-01-26 09:23 | PN ---
Teaching Attending Note Name of Resident: Ronan Begum ATTENDING PHYSICIAN STATEMENT I saw and evaluated the patient. I reviewed the resident's note and discussed the case with the resident. I agree with the resident's findings and plan as documented. SUBJECTIVE: No fever or chills. No OSB . pain in R knee is better OBJECTIVE: NAD. MMM CV: RRR Lungs: CTAB Ext : non pitting edema and thick wrinkly skin on both legs. no erythema . no edema on feet Dp 2+ b/l . able to partially bend R knee. ASSESSMENT AND PLAN: 78 y/o lady with h/o HTN, Hypothyroidism, Penicillin allergy and HLD, adn recent fall 2 weeks ago who presented with R knee pain 1- R knee pain: US with Gonzales's cyst , no DVT. No Fx on xray. - out pt f/u with ortho - Cont lidocaine patch - Neurontin and tylenol. - Cont lasix for lymphedema - continue PT 2- nNuro f/u as out pt 3- HTN: cont lisinopril 4- Asymptomatic bacteruria: no treatment DVT PX: lovenox Rehab placement pending medially ready
[2019-01-26] MEDS: FUROSEMIDE 20 MG TABLET (FP) PO SCH (09:24)
[2019-01-26] MEDS: ENOXAPARIN NA (PORCINE) 40 MG/0.4 ML DISP.SYRIN SQ SCH (09:24)
[2019-01-26] MEDS: FERROUS SO4 325 MG TABLET (FP) PO SCH (09:24)
[2019-01-26] MEDS: ASPIRIN 81 MG CHEWABLE TABLETS PO SCH (09:24)
[2019-01-26] MEDS: LIDOCAINE 5% TOPICAL PATCH TP SCH (09:24)
--- NOTE | 2019-01-26 12:12 | PN ---
Progress Note, Physician History of Present Illness: events noted chart reviewed Pain is better Still with difficulty standing on the left leg. Tolerating the patch is very well with no side effects. - Current Medication List Current Medications: Active Medications Aspirin (Asa -) 81 mg PO DAILY [facility] Last Admin: 01/26/19 09:24 Dose: 81 mg Atorvastatin Calcium (Lipitor -) 10 mg PO HS [facility] Last Admin: 01/25/19 21:13 Dose: 10 mg Enoxaparin Sodium (Lovenox -) 40 mg SQ DAILY [facility] Last Admin: 01/26/19 09:24 Dose: 40 mg Ferrous Sulfate (Feosol -) 325 mg PO DAILY [facility] Last Admin: 01/26/19 09:24 Dose: 325 mg Furosemide (Lasix -) 20 mg PO DAILY [facility] Last Admin: 01/26/19 09:24 Dose: 20 mg Gabapentin (Neurontin -) 300 mg PO TID [facility] Last Admin: 01/26/19 06:33 Dose: 300 mg Levothyroxine Sodium (Synthroid -) 12.5 mcg PO 0700 [facility] Last Admin: 01/26/19 06:33 Dose: 12.5 mcg Lidocaine (Lidoderm Patch -) 1 patch TP DAILY [facility] Last Admin: 01/26/19 09:24 Dose: 1 patch Lisinopril (Prinivil) 5 mg PO DAILY [facility] Last Admin: 01/26/19 09:23 Dose: 5 mg Miscellaneous (Lidoderm Patch Removal) 1 each MC DAILY@2200 [facility] Last Admin: 01/25/19 21:14 Dose: 1 each Nystatin (Mycostatin Cream -) 1 applic TP TID [facility] Last Admin: 01/26/19 06:32 Dose: 1 applic - Objective Vital Signs: Vital Signs Temperature 99 F 01/26/19 06:00 Pulse Rate 91 H 01/26/19 06:00 Respiratory Rate 20 01/26/19 09:00 Blood Pressure 149/66 01/26/19 06:00 O2 Sat by Pulse Oximetry (%) 95 01/26/19 09:00 Constitutional: Yes: Well Nourished Eyes: Yes: WNL HENT: Yes: WNL Neurological: Yes: Alert, Oriented, Babinski negative ...Motor Strength: WNL Labs: CBC, BMP 01/23/19 06:33 01/24/19 08:35 Problem List - Problems (1) Frequent falls Assessment/Plan: we will arrange for the CAT scan of the head as an outpatient We'll arrange for the CAT scan of the lumbosacral spine as an outpatient. Weight loss was advised. Discharge and Lidoderm patches. Calcium with vitamin D. Code(s): R29.6 - REPEATED FALLS
--- NOTE | 2019-01-26 12:18 | DS ---
Physical Exam: SUBJECTIVE: Patient seen and examined. No pain and no acute distress. OBJECTIVE: Vital Signs Period Temp Pulse Resp BP Sys/Murrell Pulse Ox Last 24 Hr 98.3 F-99.3 F 88-94 20-20 148-154/66-85 95 PHYSICAL EXAM GENERAL: A&Ox3, no acute distress EYES: PERRLA, EOMI ENT: Moist mucus membranes NECK: No JVD LUNGS: CTA, no wheezes HEART: RRR, no murmurs ABDOMEN: Soft, nontender, BS present MUSCULOSKELETAL: No CVA Tenderness EXTREMITIES: 2+ pulses, mild pain in R knee and R thigh HOSPITAL COURSE: Date of Admission:01/22/19 78 year old female with hypertension, hyperlipidemia and chronic lymphedema presented for RLE pain s/p fall out of her wheelchair after her chair's wheel fell off 1.5 weeks ago. Denied dizziness/ palpitations/ pain/loss of consciousness. 4 days prior to admission complained of sharp right knee pain with increased RLE edema. Patient refused CT scans and only has an XR of R knee , which was normal. RLE doppler was performed and was negative for DVT but did reveal a R sided Gonzales's cyst. Neurology was consulted for difficulty walking, yet she refused the recommendations for getting a CT. Ortho saw patient and recommended weight bearing as tolerated with a walker. Patient was discharged back to her home with lidocaine patches and neurontin/tylenol for pain. Lasix to be continued for lymphedema. Patient was instructed to follow as an outpatient with an orthopedic surgeon and neurologist. Date of Discharge: 01/26/19 Minutes to complete discharge: 36 <Ronan Begum - Last Filed: 01/26/19 12:33> Discharge Summary Problems reviewed: Yes Reason For Visit: R Knee Pain Current Active Problems Frequent falls (Acute) Knee pain (Acute) Gonzales cyst (Chronic) Osteoarthritis of right knee (Chronic) - Home Medications Comprehensive Discharge Medication List: Ambulatory Orders Ferrous Sulfate 325 mg PO DAILY 01/22/19 Furosemide [Lasix] 20 mg PO DAILY 01/22/19 Gabapentin 300 mg PO TID 01/22/19 Levothyroxine [Synthroid -] 12.5 mcg PO DAILY@0700 01/22/19 Lovastatin 10 mg PO DAILY 01/22/19 Aspirin [Jaime Chewable Aspirin] 81 mg PO DAILY 01/23/19 Acetaminophen [Tylenol] 650 mg PO Q6H PRN #60 tablet 01/26/19 Lidocaine 5% Patch [Lidoderm -] 1 patch TP DAILY patch 01/26/19 Lidocaine Patch Removal [Lidoderm Patch Removal] 1 each MC DAILY@2200 each 09/09 Lisinopril [Prinivil] 5 mg PO DAILY #30 tablet 01/26/19 <Ronan Begum - Last Filed: 01/26/19 12:33> <Viola Arreola - Last Filed: 01/26/19 12:49> Hospital Course: please note that lisinopril was started here for hypertension. She needs BMP in 1 week Condition: Improved - Instructions Diet, Activity, Other Instructions: You were seen in the hospital for for R knee pain An ultrasound of your knee showed that you had a Gonzales's cyst, a benign finding. Medical Recommendations: -continue using lidocaine patch for pain -continue neurontin and tylenol for pain -continue physical therapy -continue the rest of your home medications as prescribed - lisinopril was added to your medications for hypertension Please make an appointment with your primary care physician within 1 week of discharge Please make an appointment with Dr. Moreno, the neurologist, within 2 weeks of discharge to discuss frequently falling follow up with Dr. Sanchez, the orthopedic surgeon If you experience severe pain, redness or significant swelling of your knee please return to the emergency room need BMP in 1 week , to evaluate renal function as lisinopril was recently started Referrals: Bryan Allred MD [Staff Physician] - 2 Weeks Davdi Bianchi [Primary Care Provider] - 2 Weeks Hina Moreno MD [Staff Physician] - Disposition: [facility] This patient is new to me today: Yes Date on this admission: 01/26/19 Emergency Visit: No Critical Care patient: No - Discharge Referral Referred to [facility] Med [facility].C[facility] No <Ronan Begum - Last Filed: 01/26/19 12:33> ATTENDING PHYSICIAN STATEMENT I saw and evaluated the patient. I reviewed the resident's note and discussed the case with the resident. I agree with the resident's findings and plan as documented. SUBJECTIVE: OBJECTIVE: ASSESSMENT AND PLAN: <Ronan Begum - Last Filed: 01/26/19 12:33> ATTENDING PHYSICIAN STATEMENT please note that lisinopril was started here for HTN, and the patient will need BMP in 1 week <Viola Arreola - Last Filed: 01/26/19 12:49>
[2019-01-26 12:25] VITALS: BP 150/79; PULSE 83; TEMP 98.9
== END 2019-01-26 12:43 | DRG 558 ==
LOC: JER 12:34 → JERBED 19:41 → J8W 20:59
PROVIDERS: ADMIT Internal Medicine; ATTEND Internal Medicine
DX: M71.21 Synovial cyst of popliteal space [Baker], right knee (principal); Z68.41 Body mass index [BMI] 40.0-44.9, adult; N39.0 Urinary tract infection, site not specified; E78.5 Hyperlipidemia, unspecified; I10 Essential (primary) hypertension; G20 Parkinson's disease; E03.9 Hypothyroidism, unspecified; Z88.0 Allergy status to penicillin; R00.0 Tachycardia, unspecified; E66.8 Other obesity; B96.20 Unspecified Escherichia coli [E. coli] as the cause of diseases classified elsewhere; I25.10 Atherosclerotic heart disease of native coronary artery without angina pectoris; R29.6 Repeated falls; I89.0 Lymphedema, not elsewhere classified; B35.6 Tinea cruris; M17.11 Unilateral primary osteoarthritis, right knee; Z99.3 Dependence on wheelchair
CPT/HCPCS: 36415; 71045-TC-FY; 73562-TC-RT-FY; 80048; 80053; 81003; 82550; 83735; 83880; 84100; 84484; 85025; 85027; 87086; 87186; 93005; 93010; 93306-TC; 93970-TC; 97116-GP; 97162-GP; 99283-25; J7030; Q2036